=== PATIENT | female | born 1975 | race Caucasian/White ===

== ENCOUNTER 2017-04-30 09:25 | Day surgery (SDC) | payer OTHER ==
--- NOTE | 2017-04-19 20:06 | HP ---
PREOPERATIVE HISTORY AND PHYSICAL: DATE OF ADMISSION/SURGERY: 04/30/17 DATE OF OFFICE VISIT: 04/19/17 ATTENDING SURGEON: Dr. Adeel Copeland.* (DICTATED BY DARREN BAIRD) PROCEDURE: Left shoulder arthroscopic decompression, debridement, and subpectoral biceps tenodesis. CHIEF COMPLAINT: Left shoulder. HISTORY OF PRESENT ILLNESS: Anca is a 41-year-old female, who presents to the clinic for a left shoulder pain connected with a previous work-related injury in January of 2015. Her shoulder pain started in September of 2016 and is made worse with movement. She has failed conservative measures to include physical therapy, and has therefore agreed to undergo a left shoulder arthroscopic decompression, debridement, and subpectoral biceps tenodesis with Dr. Copeland, on 04/30/17. PAST MEDICAL HISTORY: History of anemia. PAST SURGICAL HISTORY: Left elbow surgery and left elbow manipulation. The patient denies prior complications with anesthesia. MEDICATIONS: 1. Gildess 1.5-30 mg/mcg once daily. 2. Advil 200 mg as needed for pain. 3. Vitamin D3 one by mouth every day. ALLERGIES: HYDROCORTISONE, which causes rash. FAMILY HISTORY: Significant for multiple sclerosis in her mother, hypertension in her grandfather with pulmonary embolism; however, he has ALS and was 80 y/o when he was diagnosed with PE. SOCIAL HISTORY: The patient lives with her spouse. 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 She denies tobacco use. She reports rare alcohol consumption. She exercises regularly. She is right-hand dominant. REVIEW OF SYSTEMS: A 14-point review of systems was reviewed with the patient, positive for current complaint, otherwise negative. Denies chest pain, shortness of breath, fever, chills, history of DVT or PE, or history of bleeding disorder. PHYSICAL EXAMINATION GENERAL: A 41-year-old, well-developed, well-nourished female, in no acute distress. Alert and oriented x3. Appropriate mood and affect. Good balance and coordination. VITAL SIGNS: Height 66, weight 147, blood pressure 118/78, respiratory rate 18 , temperature 98, BMI 23.7. HEENT: Normocephalic, atraumatic. PERRLA. Throat clear. NECK: Supple. PULMONARY: Lungs are clear to auscultation bilaterally. No wheezing, rhonchi, or rales. CARDIO: Regular rate and rhythm. S1 and S2. No murmurs, gallops, or rubs. No edema. ABDOMEN: Positive bowel sounds, soft, nontender. MUSCULOSKELETAL: Left upper extremity: Skin is intact. No warmth or erythema. Tender over the bicipital groove. Forward flexion 150, abduction 160 with pain, externally rotate to 65, internally rotate to T10. +4/5 strength to supraspinatus testing, +5/5 to the infraspinatus and subscapularis. Mildly positive Sasha's impingement, Hand, Speed's, and [place]'s. +1 anterior and posterior glide. Negative sulcus. +2 radial pulse. Sensation is intact to light touch distally. NEURO: Alert and oriented x3. Cranial nerves grossly intact. Sensation is intact to light touch. DIAGNOSTIC STUDIES: MRI and x-rays of the left shoulder reveal fluid in the bicipital groove with a possible superior labral tear. The rotator cuff appears intact. There is some evidence of impingement and tendinosis. IMPRESSION: Left shoulder biceps tendinitis and impingement. PLAN: The patient is scheduled to undergo a left shoulder arthroscopic decompression, debridement, and subpectoral biceps tenodesis with Dr. Copeland, on 04/30/17. She will follow up in 10 to 14 days postop for followup and suture removal. A script for Percocet was sent to her pharmacy for postop pain management and Keflex for antibiotic prophylaxis. DARREN BAIRD [id number]/[facility] #: [id number] [facility] CENTERKayleigh
[~2017-04-30 09:25] MED LIST: Buffered Lidocaine 0.9% SYRIN* 5 ML/SYR SYRINGE INTRADERM ONE; Dexamethasone IV* 4 MG/ML 1 ML (4 MG) IV SLOW PU ONE; Famotidine IV* 10 MG/ML 2 ML (20 mg) IV ONE
[2017-04-30] MEDS ORDERED: Dexamethasone IV* 4 MG/ML 1 ML (4 MG) ONE (09:35)
[2017-04-30] MEDS ORDERED: ceFAZolin 2 GM in 100 MLS NS (*) BAG IVPB ONE (09:35)
[2017-04-30] MEDS ORDERED: Famotidine IV* 10 MG/ML 2 ML (20 mg) ONE (09:35)
[2017-04-30] MEDS ORDERED: Bupivacaine 0.25% SDV* 30 ML ONE (10:25)
[2017-04-30] MEDS ORDERED: Lidocaine 1% MPF wEPI 200,000* 30 ML SDV ONE (10:26)
[2017-04-30] MEDS ORDERED: ROPIVACAINE 5 MG/ML 30 ML BTL (0.5%) ONE (10:35)
[2017-04-30] MEDS ORDERED: fentaNYL* 50 MCG/ML 2 ML VIAL (100 MCG VIAL) ONE (10:50)
[2017-04-30] MEDS ORDERED: Propofol* 10 MG/ML 20 ML BTL IV PUSH ONE (10:56)
[2017-04-30] MEDS ORDERED: Ketorolac INJ* 30 MG/ML 1 ML VIAL ONE ×2 (10:56→11:53)
[2017-04-30] MEDS ORDERED: Midazolam* 1 MG/ML 2 ML VIAL (2 MG) ONE (10:56)
[2017-04-30] MEDS ORDERED: Ondansetron INJ* 2 MG/ML VIAL ONE (10:56)
[2017-04-30] MEDS ORDERED: Atracurium* 10 MG/ML 10 ML VIAL ONE (11:01)
[2017-04-30] MEDS ORDERED: methylPREDNISolone ACETATE 80* 80 MG/ML 1 ML VIAL ONE (11:52)
[2017-04-30 13:14] VITALS: BP 120/77
--- NOTE | 2017-05-01 02:41 | OP ---
CC: PCPDr. Vera * DATE OF OPERATION: 04/30/17 - [facility] DATE OF : 79 SURGEON: Adeel Copeland MD LUBE MAN: DARREN Castano. An assurance assistant was needed for the entirety of the case to help with position, retraction, and utilized throughout all portions of the case. ANESTHESIOLOGIST: Nader Parra MD ANESTHESIA: General interscalene block. PRE-OP DIAGNOSES: Left shoulder impingement with biceps tendinitis and tendinopathy, SLAP tear. POST-OP DIAGNOSES: Left shoulder impingement with biceps tendinitis and tendinopathy, SLAP tear. OPERATIVE PROCEDURE: 1. Left shoulder arthroscopy with glenohumeral debridement. 2. Subacromial decompression with acromioplasty. 3. Subpectoral biceps tenodesis. INDICATIONS: Anca Long is a 41-year-old female, who had a previous work- related injury to her left upper extremity in January of 2015 where she sustained an elbow fracture, she ended up getting stiffness. She had a significant amount of surgery that was done after that and extensive postop course. She started to notice shoulder pain during this time. She was diagnosed with bicipital tendinitis and impingement. She has failed conservative management and elected to proceed with surgical treatment. After obtaining Workers' Comp approval, she has been okay for surgery. The risks and benefits of surgery were discussed at length, which included but not limited to , bleeding; infection; damage to nerves, vessels, surrounding structures; wound nonhealing; persistent pain; need for further surgery; scarring; stiffness; incomplete relief of symptoms; risks of anesthesia. COMPLICATIONS: None. ESTIMATED BLOOD LOSS: Minimal. IMPLANTS USED: One 2.8-mm Q-Fix anchor. DESCRIPTION OF PROCEDURE: The patient was greeted in the preoperative area by the attending surgeon. Correct extremity was marked, consent was confirmed. The patient was brought back to the operating suite where she was placed in the supine position on the operating room table. She then underwent interscalene block by the anesthesiologist after which she underwent general anesthesia with endotracheal intubation. She was carefully positioned in the right lateral decubitus position. All bony prominences were padded. She was secured with a peg board. The left arm was draped unsterile with 10 pounds of traction. The left shoulder was prepped and draped in the usual sterile fashion beginning with chlorhexidine soap, scrub, and alcohol wipe, and a final prep with ChloraPrep. After appropriate surgical pause indicating side, site, procedure, and administration of antibiotics, the posterior lateral portal was made sharply with a 11 blade. Scope was introduced into the joint. The joint was examined. There was erythema and inflammation about the biceps itself. The anterior portal was made in an outside-in fashion. There were grade 0 changes to the glenohumeral joint. The anterior, posterior, and superior labrum had some mild fraying. Inferior recess was intact with synovitis. Subscap was intact. Undersurface of the supraspinatus was also intact. The biter was used to do a biceps tenotomy due to the significant irrigation and inflammation. The shaver was used to debride the anterior, posterior, superior labrum. After the debridement was completed, attention was directed to the subacromial space. The scope was placed in the subacromial space. Lateral portal was made in an outside-in fashion. Shaver was used to debride the abundant hyperemic, thick bursa that was present. After this was complete, the undersurface of the acromion was skeletonized using electrocautery device. There was a small-to- medium sized anterolateral spur, which was then carefully debrided back using a 4.0 oval bur. The shaver was used to remove the debris and then the cuff was examined. The bursal side of the cuff was pristine and there was no evidence of fraying or tearing. An 18-gauge needle was placed under arthroscopic visualization. The scope was removed. All fluids and debris were removed from the shoulder. The bed was air planed to the left side. The anterior aspect of the shoulder was prepped again using ChloraPrep. The 15 blade was used to make an incision in the line with the biceps tendon accompanying the inferior two-thirds of the pec. The soft tissues were carefully dissected. Once the fascia planes were identified, the remainder of the dissection was done bluntly. The pec was superiorly elevated, bicipital groove was palpated. The biceps was subluxing in the groove. The biceps was brought through the wound and found to have significant hyperemia as well as some tendinopathy. The groove was then prepared in the usual fashion with electrocautery and the rasp as well as the osteotome. Once this was done, the Q- Fix drill guide was then used to drill unicortically. The Q-Fix was deployed with excellent purchase. The sutures were then passed through the tendon approximately 1 cm proximal to the musculotendinous junction. The excess stump was excised. The biceps was then slid back into the groove and tied down, secured. The wounds were copiously irrigated with sterile saline. The anterior wound was closed in layers with 2- 0 Vicryl and 3-0 Monocryl, the portals with 3-0 nylon. Sterile dressings were applied. The anterior wound was injected with 20 cc of 0.25% Marcaine plain and the subacromial space with 80 mg of Depo-Medrol. Sterile dressings were applied as well as a Cryo/Cuff and UltraSling. She was awoken from anesthesia and transferred to PACU in stable condition. POSTOPERATIVE PLAN: She will be nonweightbearing. She will be allowed elbow, hand, and wrist range of motion. She will start physical therapy next week. We will see the patient back in 10 to 14 days. She will be discharged on pain medications and antibiotics. DVT prophylaxis considered but deferred due to no previous personal or family history. [id number]/[facility] #: [id number] [facility] HOSPITALKayleigh
== END 2017-04-30 13:25 | disposition home or self-care (01) ==
LOC: OREAST 09:25
PROVIDERS: ATTEND Orthopaedic Surgery
DX: M75.42 Impingement syndrome of left shoulder (principal); M75.22 Bicipital tendinitis, left shoulder; M24.812 Other specific joint derangements of left shoulder, not elsewhere classified; G89.18 Other acute postprocedural pain
CPT/HCPCS: 81025; C1776; J1040; J1100; J1885; J2001; J2250; J2405; J2704; J2795; J3010